=== PATIENT | female | born 1965 | race Caucasian/White ===

== ENCOUNTER 2017-04-26 19:27 | Emergency (ER) | payer OTHER ==
[~2017-04-26] VITALS: Ht 170.2 cm; Wt 75.9 kg
[~2017-04-26 19:27] MED LIST: PRE20 PO
[2017-04-26 19:29] VITALS: BP 165/99; PULSE 98; RESP 16; O2SAT 99
[2017-04-26 20:02] LABS: BASOPHILS % (AUTO) 0.5 % (0-3); EOSINOPHILS % (AUTO) 1.2 % (0-5); MONOCYTES % (AUTO) 7.1 % (4-12); Mean Corpuscular Hemoglobin 30.9 pg (27.0-35.0); Mean Corpuscular Volume 90.2 fL (81-100); NEUTROPHILS % (AUTO) 70.9 % (40-74); Platelet Count 217 bil/L (150-400)
--- NOTE | 2017-04-26 20:08 | ED.REPORT ---
HPI-General Illness Date of Service Apr 26, 2017 ED Provider: John Fung MD Pt is a 51 year old female with a recent history of HTN who presents to the ED complaining of waxing and waning tight left-sided chest pain onset 16:30 today. She c/o associated nausea, headache (has been present for weeks), and sharp aching upper back pain that she states is different from her chest pain. States that it does not radiate through to her chest, nor does the chest pain radiate to the back. She thinks they're separate. She denies fever, abdominal pain, SOB , chills, sore throat, bruising, vision change, rash, hematuria, hematochezia, constipation, diarrhea, and any other symptoms. Pt rates her chest pain as an 8/ 10, stating that it felt pressure like and heavy. The pt reports that she spoke with her PCP over the phone, Dr. Alexandra, and he referred her to the ED for further evaluation. She states she was started medication for HTN 3 days ago. Her symptoms are not exacerbated with eating or inspiration. Nursing Notes Stated Complaint: CHEST PAIN Chief Complaint: Chest Pain Nursing Notes Reviewed: Yes Allergies: Coded Allergies: nitrofurantoin (Verified Allergy, Unknown, 04/26/17) Scheduled Prednisone (PredniSONE) 20 Mg Tablet 20 MG PO TID General Time Seen by MD: 20:07 Chief Complaint Chest pain Hx Obtained From: Patient Arrived By: Walk-in Sudden in Onset?: No Symptom Duration: Waxes and wanes Location: : Back: Chest Quality: Aching, Painful, Pressure, Sharp Radiation: : Does not radiate Severity: Current: Pain level 8 out of 10 Severity: Maximum: Severe Recent Healthcare: Recent doctor visit Similar Sx Previous: No Past Medical History Past Medical History Frequent UTIs. Previous kidney infections last one 2005. ureteral reflux. 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 Reports: Family History Pt is adopted - unknown family history Smoking History Unknown if Ever Smoker Social History Vegetarian Alcohol Use: "Social" Drug Use: Denies drug use Other Social History: Good social support, Lives with children, Local resident Ambulatory Status Independent Review of Systems Full Review of Systems Constitutional: Denies: Chills, Fever Eyes: Denies: Blurred bilateral Ears / Nose / Throat: Denies: Sore throat Respiratory: Denies: Shortness of breath Cardiovascular: Reports: Chest pain GI: Reports: Nausea, Denies: Abdominal pain, Constipation, Diarrhea, Hematochezia Female: Denies: Hematuria Musculoskeletal: Reports: Back pain Hematologic: Denies Bruising Skin: Denies Rash Neurologic: Reports: Headache Complete sys rev & neg: except as marked. Physical Exam Nursing note and vitals reviewed. Constitutional: Well-developed, well-nourished. Not diaphoretic. Head: Normocephalic and atraumatic. Mouth/Throat: Oropharynx is clear and moist. No oropharyngeal exudate. Eyes: EOM are normal. Pupils are equal, round, and reactive to light. Neck: Supple, no tracheal deviation. No bruit. Cardiovascular: Normal rate, regular rhythm. Equal and intact distal pulses throughout. Pulmonary/Chest: Effort normal and breath sounds normal. No respiratory distress. Left sided chest wall tenderness to palpation. Back: Right para-spinal tenderness around the mid-thoracic spine. Abdominal: Soft. No distension. There is no tenderness, rebound, or guarding. Bowel sounds present. Musculoskeletal: Range of motion grossly intact, moving all extremities. No edema or tenderness appreciated. Neurological: AOx3. Grossly nonfocal exam. Strength and sensation intact and equal to bilateral upper and lower extremities. Skin: Warm and dry, no rashes or pallor appreciated. Psychiatric: Appropriate mood and affect. Behavior appears normal. Vital Signs Vital Signs Date Time Temp Pulse Resp B/P Pulse Ox O2 Delivery O2 Flow Rate FiO2 04/27/17 00:49 77 15 140/84 97 Room Air 04/26/17 23:00 83 18 164/99 97 Room Air 04/26/17 22:02 84 13 153/95 96 Room Air 04/26/17 19:29 37.0 98 16 165/99 99 Room Air Initial VS: Reviewed Interpretation & Diagnostics Lab Results Interpretation Result Diagram: 04/26/17195804/26/171958 Test 04/26/17 19:59 04/26/17 23:20 White Blood Count 7.7th/mm3 (3.8-10.1) Red Blood Count 4.17mil/mm3 (3.90-5.20) Hemoglobin 12.9g/dL (12.0-15.6) Hematocrit 37.6% (35.0-46.0) Mean Corpuscular Volume 90.2fL (81-100) Mean Corpuscular Hemoglobin 30.9pg (27.0-35.0) Mean Corpuscular Hemoglobin Concent 34.3% (32.0-37.0) Red Cell Distribution Width 12.4% (12.3-15.4) Platelet Count 217bil/L (150-400) Neutrophils (%) (Auto) 70.9% (40-74) Lymphocytes (%) (Auto) 20.0% (14-46) Monocytes (%) (Auto) 7.1% (4-12) Eosinophils (%) (Auto) 1.2% (0-5) Basophils (%) (Auto) 0.5% (0-3) D-Dimer < 0.50mg/L FEU (<0.50) Sodium Level 135mEq/L (134-144) Potassium Level 3.8mEq/L (3.5-5.2) Chloride Level 98mEq/L (97-108) Carbon Dioxide Level 23mmol/L (18-29) Blood Urea Nitrogen 11mg/dL (6-24) Creatinine 0.85mg/dL (0.57-1.00) Estimat Glomerular Filtration Rate 101mL/min (>59) Glucose Level 109mg/dL (60-99) Calcium Level 8.7mg/dL (8.5-10.1) Magnesium Level 1.5mg/dL (1.6-2.6) Total Bilirubin 0.5mg/dL (0.0-1.2) Aspartate Amino Transf (AST/SGOT) 19U/L (0-50) Alanine Aminotransferase (ALT/SGPT) 21U/L (0-32) Alkaline Phosphatase 56U/L (25-150) Total Protein 7.0g/dL (6.4-8.4) Albumin 4.2g/dL (3.4-5.0) Hold Rogers Top Tube Received (Received) Troponin T 0.010ug/L (0.0-0.011) Lab Results Interpretation: Hypertensive Vitals are WNL D-dimer - negative Delta Troponin - negative ECG Interpretation ECG Interpretation: Sinus rhythm with a rate of 97 Ventricular premature complex Borderline prolonged KS interval Probable left atrial enlargement Time: 19:40 Interpreted by: ED physician X-Ray Chest Interpretation Chest Xray Interpretation: IMPRESSION: No acute cardiopulmonary disease. Dictated by: Tor Ricks M.D. on 04/26/2017 at 20:17 View: 1 view Interpretation / Wet Read by: Interpret - Radiologist Re-Eval/Medical Decision Med Decision/Clinical Course In summary, 51-year-old female with a past medical history of hypertension who presents to the ED for evaluation of nonexertional, nonradiating, intermittent, left-sided chest pain since earlier today. Differential includes ACS, PE, PTX, aortic dissection, myocarditis/pericarditis, abdominal etiology such as cholecystitis, MSK pain. Pain has been intermittent since onset 4 hours prior to arrival; troponin negative x 2. HEART score of 3. EKG demonstrates sinus rhythm with no acute ischemic changes, PVC present. No pleuritic symptoms, recent history of extended travel/immobilization, cancer; d-dimer negative. No evidence of pneumothorax on chest x-ray or exam. The patient does describe some pain in her back, however she explicitly emphasizes that it is not radiating to her back whatsoever and her back pain is entirely separate - Pain not described as tearing or ripping, CXR w/ no evidence of widened mediastinum, normal neuro exam, and equal pulses to bilateral upper and lower extremities; aortic dissection seems very unlikely. Neither clinical presentation, exam, or EKG seem c/w pericarditis or myocarditis. No abdominal pain or tenderness. Rest of labs reviewed, unremarkable, including CBC and CMP. Patient is mildly hypertensive, otherwise vital signs here grossly within normal limits. Patient received Tylenol with mild relief of her headache. Her headache has been going on for several weeks, not sudden or maximal in onset, not worse today - it seems less likely that this is related to her chest pain or back pain at this time. Patient would likely benefit from a stress test for risk stratification - discussed doing this here or as an outpatient and patient preferred discharge home with follow-up with Dr. Alexandra tomorrow. This seems reasonable. Plan discharge home with very careful return precautions. Patient agreeable to plan, no further questions. Source of Hx: Old records Time of Eval: 22:48 Re-Evaluation/Progress Note: Pt rechecked. Discussed reassuring chest x-ray. Informed of pt of her ECG and lab results. Informed pt that there are no acute ischemic events noted, but that there may be other causes for her symptoms with pending labs. Discussed with pt of risk factors for cardiac disease and need for stress test. She states that she as a stress test scheduled for 05/01/17. Informed pt of plan for additional troponin, and d-dimer to screen for PE with pending plan for discharge. F/U instructions and RTER warnings given. Pt understands and agrees with plan. All questions addressed. Counseled Regarding: Diagnosis, Lab results, Need for follow-up, When/why to return to ED Discharge & Departure Primary Impression: Chest pain Chest pain type: unspecified Qualified Code: R07.9 - Chest pain, unspecified Disposition: Home Discharge Condition All VS Reviewed: Yes Condition: Stable Patient Instructions: Chest Pain (ED) Additional Instructions: Thank you for allowing us to be a part of your care in the ED today. Your emergency department results, including labs and chest x-ray, are reassuring. Your ECG did not show any signs of a heart attack today, but I'd like you to get it followed up. I do not think that there is an emergent cause for your symptoms today that would require admission to the hospital; however, a clear cause of your symptoms was not identified. Please schedule a follow up appointment with your primary care physician, Dr. Alexandra, tomorrow for a recheck. Let her know about your visit to the ED today. Please return to the emergency department for any new or worsening symptoms including any changes in your pain, chest pain, shortness of breath, one-sided weakness, numbness or tingling, vision change, or if there's anything else of concern to you. Referrals: Elinor Alexandra MD (PCP) Scribgisela Attestation Portions of this note were transcribed by Ally Hinojosa. I, Dr. Fung personally performed the history, physical exam and medical decision-making; I reviewed and confirmed the accuracy of the information in the transcribed note. Signed by: Regina Almendarez, 04/26/17. copies to: Elinor Alexandra MD, William B MD Apr 26, 2017 20:08 Ally Pepper Apr 26, 2017 22:38
--- NOTE | 2017-04-26 20:19 | DRSVH ---
PROCEDURE: X-RAY CHEST ONE VIEW, PORTABLE ([id number]) INDICATIONS: 51 year-old female with chest pain for last 4 hours. TECHNIQUE: One view of the chest was acquired. COMPARISON: [facility], CR, XR CHEST 2VW, 11/26/2016, 9:35. [facility], CR , XR CHEST 2VW, 11/09/2016, 16:34. FINDINGS: Surgical changes and devices: None. Lungs and pleura: No pleural effusions or pneumothorax. Lungs are clear. Mediastinum: Mediastinal contours appear normal. Heart size is normal. Bones and chest wall: No suspicious bony lesions. Overlying soft tissues appear unremarkable. IMPRESSION: No acute cardiopulmonary disease. Dictated by: Tor Ricks M.D. on 04/26/2017 at 20:17 Approved by: Tor Ricks M.D. on 04/26/2017 at 20:17
[2017-04-26 20:24] LABS: TROPONIN T 0.01 ug/L (0.0-0.011)
[2017-04-26 20:35] LABS: Magnesium 1.5 mg/dL (1.6-2.6)
[2017-04-26] MEDS ORDERED: Ondansetron 2 mg/mL 2 mL Inj ONE (21:47)
[2017-04-26 22:02] VITALS: BP 153/95; PULSE 84; RESP 13; O2SAT 96
[2017-04-26 23:00] VITALS: BP 164/99; PULSE 83; RESP 18; O2SAT 97
[2017-04-27 00:49] VITALS: BP 140/84; PULSE 77; RESP 15; O2SAT 97
== END 2017-04-27 00:52 | disposition home or self-care (01) ==
LOC: SED 19:27
DX: R07.9 Chest pain, unspecified (principal); I10 Essential (primary) hypertension; Z88.1 Allergy status to other antibiotic agents
CPT/HCPCS: 36415; 71010; 80053; 83735; 84484; 85025; 85378; 93005; 96374; 99285; J2405